=== PATIENT | male | born 1960 | race Caucasian/White ===

== ENCOUNTER → 2016-08-29 | Outpatient (CLI) | payer BC ==
--- NOTE | 2016-08-29 14:21 | US ---
EXAMINATION TYPE: US carotid duplex BILAT DATE OF EXAM: 08/29/2016 2:06 PM COMPARISON: NONE CLINICAL HISTORY: I65.29 Occlusion and stenosis of unspecified carot. EXAM MEASUREMENTS: RIGHT: Peak Systolic Velocity (PSV) cm/sec ----- Right CCA: 70.6 ----- Right ICA: 56.8 ----- Right ECA: 79.8 ICA/CCA ratio: 0.9 RIGHT: End Diastole cm/sec ----- Right CCA: 20.7 ----- Right ICA: 18.4 ----- Right ECA: 17.2 LEFT: Peak Systolic Velocity (PSV) cm/sec ----- Left CCA: 78.4 ----- Left ICA: 60.0 ----- Left ECA: 65.0 ICA/CCA ratio: 0.8 LEFT: End Diastole cm/sec ----- Left CCA: 22.8 ----- Left ICA: 26.8 ----- Left ECA: 16.2 VERTEBRALS (direction of flow): Right Vertebral: Antegrade Left Vertebral: Antegrade IMPRESSION: Minimal atheromatous change without hemodynamically significant stenosis. Criteria for Assigning % of Stenosis / Diameter reduction (Estimation based on the indirect measurements of the internal carotid artery velocities (ICA PSV). 1. Normal (no stenosis)=ICA PSV < 125 cm/s: ratio < 2.0: ICA EDV<40 cm/s. 2. Less than 50% stenosis=ICA PSV < 125 cm/s: ratio < 2.0: ICA EDV<40 cm/s. 3. 50 to 69% stenosis=ICA PSV of 125 to 230 cm/s: ration 2.0 ? 4.0: ICA EDV 40-100 cm/s. 4. Greater than 70% stenosis to near occlusion= ICA PSV > 230 cm/s: ratio > 4.0: ICA EDV > 100 cm/s. 5. Near occlusion= ICA PSV velocities may be low or undetectable: variable ratio and ICA EDV. 6. Total occlusion=unable to detect flow.
== END | disposition home or self-care (01) ==
LOC: RADUSWWP 13:36
PROVIDERS: ATTEND Family Medicine
DX: I65.29 Occlusion and stenosis of unspecified carotid artery (principal)
CPT/HCPCS: 93880

== ENCOUNTER → 2018-08-04 | Outpatient (CLI) | payer BC ==
--- NOTE | 2018-08-05 07:18 | XR ---
EXAMINATION TYPE: XR lumbosacral spine min 4V DATE OF EXAM: 08/04/2018 CLINICAL HISTORY: Low back pain radiating into the groin TECHNIQUE: Frontal, lateral, and oblique images of the lumbar spine are obtained. COMPARISON: None FINDINGS: There are 5 lumbar type vertebral bodies identified. The lumbar spine shows satisfactory alignment without evidence of acute fracture or dislocation. Vertebral body heights are within normal limits. Endplate sclerosis is wing is seen at L4-L5 and L5-S1. Facet arthropathy is present from L3 through S1. Multilevel small anterior ossified structure also seen. There is a slight dextroscoliosis of the lumbar spine. The oblique images demonstrate no pars interarticularis defects. The overlying soft tissue appears unremarkable. Cholecystectomy clips are noted. IMPRESSION: No acute fracture or malalignment in the lumbar spine. Mild to moderate multilevel degen erative disc disease of the lumbar spine and slight dextroscoliosis.
== END | disposition home or self-care (01) ==
LOC: RADXRYALE 16:54
PROVIDERS: ATTEND Family Medicine
DX: M51.36 Other intervertebral disc degeneration, lumbar region (principal); M41.86 Other forms of scoliosis, lumbar region
CPT/HCPCS: 72110

== ENCOUNTER → 2020-05-05 | Outpatient (CLI) | payer BC ==
--- NOTE | 2020-05-05 08:39 | MR ---
EXAMINATION TYPE: MR lumbar spine wo/w con DATE OF EXAM: 05/05/2020 COMPARISON: Lumbar spine x-ray August 04, 2018 HISTORY: Low-back pain into left hip for 2 weeks. Radiculopathy and disc degeneration per order. TECHNIQUE: Multiplanar, multisequence images of the lumbar spine is performed without and with IV contrast, util izing 10 mL intravenous Gadavist FINDINGS: Persistent slight lateral convex scoliotic curvature centered at L2 level. Sagittal images of the lumbar spine show vertebral body heights and alignment to appear satisfactory. Multilevel disc desiccation with mild to moderate disc space narrowing L2-L3 level. [id number]-vi-jtdqadog multilevel ant erior spurring. The conus medullaris is normal in position and signal ending mid L1 level. There is a 7 mm Tarlov cyst S2 level sagittal image 8 The bone marrow signal intensity is within normal limits. No suspicious postcontrast enhancement. Axial images at T12-L1 level show mild facet degenerative changes bilaterally. Axial images at L1-L2 show ijva-uc-[id number] broad disc bulge minimally effacing the anterior thecal s ac. Patent bilateral neural foramina. Axial images at L2-L3 level show moderate broad disc bulge effacing the anterior thecal sac with mild facet degenerative changes and ligamentum flavum hypertrophy. There is mild to moderate left and mil d right-sided neural foraminal narrowing. Axial images at the L3-L4 level show mild to moderate broad disc bulge and mild facet arthropathy jossie aterally. Patent spinal canal and bilateral neural foramina. Axial images at L4-L5 level show moderate broad disc bulge and mild facet degenerative changes and li gamentum flavum hypertrophy. There is effacement of the anterior thecal sac. There is mild bilateral anterior inferior neural foraminal narrowing. Axial images at the L5-S1 level show annular tear. There is mtxn-ch-mttawtfv broad disc bulge with ce ntral disc protrusion component. There is minimal effacement of the anterior thecal sac. There is mil d left-sided neural foraminal narrowing. Right-sided neural foramina is patent. Mild facet arthropath y bilaterally. Paraspinal muscle bulk is preserved. IMPRESSION: Multilevel degenerative changes in the lumbar spine as detailed above. No suspicious enha ncement is appreciated.
== END | disposition home or self-care (01) ==
LOC: RADMRIMAIN 07:22
PROVIDERS: ATTEND Family Medicine
DX: M47.26 Other spondylosis with radiculopathy, lumbar region (principal); M47.27 Other spondylosis with radiculopathy, lumbosacral region; M47.25 Other spondylosis with radiculopathy, thoracolumbar region
CPT/HCPCS: 72158

== ENCOUNTER → 2021-06-01 | Outpatient (CLI) | payer BC ==
--- NOTE | 2021-06-01 11:18 | CT ---
EXAMINATION TYPE: CT sinus wo con DATE OF EXAM: 06/01/2021 COMPARISON: None HISTORY: 60-year-old male J32.9, Chronic Sinusitis. Patient also states nosebleeds and a deviated sep maritza. CT DLP: 680.10 mGycm Automated exposure control for dose reduction was used. TECHNIQUE: Noncontrast axial views of the paranasal sinuses were obtained. Coronal reconstructions pe rformed. FINDINGS: PARANASAL SINUSES: Mild lobulated mucosal thickening along the floor of the right greater than left maxillary sinuses. Mild mucosal thickening anterior left ethmoid air cells. The sphenoid and frontal sinuses are well pneumatized. There is no air-fluid level. Reactive rocky- osteogenesis is not seen. There is no destruction of the osseous covarrubias of the paranasal sinuses. THE NASAL CAVITY: The osteomeatal complexes are patent. There is leftward nasal septal deviation. The imaged brain and orbits are normal in appearance. Mastoid air cells and middle ear cavities are well pneumatized. Reformatted images confirm above findings. IMPRESSION: 1. Mild mucosal thickening bilateral maxillary sinuses and mild within the anterior left ethmoid air cells. 2. Leftward nasal septal deviation.
== END | disposition home or self-care (01) ==
LOC: RADCTMAIN 10:25
PROVIDERS: ATTEND Otolaryngology
DX: J34.2 Deviated nasal septum (principal); J34.89 Other specified disorders of nose and nasal sinuses
CPT/HCPCS: 70486

== ENCOUNTER 2024-04-13 05:37 | Day surgery (SDC) | payer BC, OTHER ==
[2024-04-09 13:09] VITALS: BMI 31.4
[2024-04-13] MEDS ORDERED: LIDOCAINE 1% (10MG/ML) FOR IV START INTRADERMA PRN (06:09)
[2024-04-13 06:38] VITALS: TEMP 98
[2024-04-13] MEDS: ACETAMINOPHEN TAB 500 MG TAB PO PRN (06:43)
[2024-04-13] MEDS: LACTATED RINGERS 1,000 ML IV SCH (06:43)
[2024-04-13] MEDS: IV FLUID CONTINUATION 1,000 ML IV ONE (07:00)
[2024-04-13] MEDS ORDERED: fentaNYL (PF) 50 MCG/ML 2 ML AMP IVP PRN (07:00)
[2024-04-13] MEDS: MIDAZOLAM 2 MG/2 ML VIAL IV PRN (07:01)
[2024-04-13] MEDS: MIDAZOLAM 2 MG/2 ML VIAL IVP ONE (07:01)
[2024-04-13] MEDS: ONDANSETRON 4 MG/2 ML VIAL IVP ONE (07:10)
[2024-04-13] MEDS: HEPARIN SODIUM,PORCINE 5,000 UNIT/ML 1 ML VIAL SQ PRN (07:10)
[2024-04-13] MEDS: DEXAMETHASONE SOD PHOSPHATE 4 MG/ML 1 ML VIAL IV ONE (07:11)
[2024-04-13] MEDS: LIDOCAINE 1%-EPI 1:100,000 20 ML VIAL SQ ONE ×2 (07:22→08:01)
[2024-04-13] MEDS ORDERED: GLYCOPYRROLATE 0.2 MG/ML 2 ML VIAL ONE (07:42)
[2024-04-13] MEDS ORDERED: ROCURONIUM 10 MG/ML (5 ML VIAL) IV ONE (07:42)
[2024-04-13] MEDS ORDERED: fentaNYL (PF) 50 MCG/ML 2 ML AMP ONE (07:42)
[2024-04-13] MEDS ORDERED: NEOSTIGMINE 1 MG/ML 10 ML VIAL ONE (07:42)
[2024-04-13] MEDS ORDERED: KETAMINE HCL IN 0.9 % NACL 50 MG/5 ML SYRINGE ONE (07:42)
[2024-04-13] MEDS ORDERED: DEXAMETHASONE SOD PHOSPHATE 4 MG/ML 1 ML VIAL ONE (07:42)
[2024-04-13] MEDS ORDERED: SUCCINYLCHOLINE CHLORIDE 200 MG/10 ML VIAL IV ONE (07:42)
[2024-04-13] MEDS ORDERED: LIDOCAINE 1% INJ 10MG/ML (20 ML MDV) ONE (07:42)
[2024-04-13] MEDS ORDERED: ROPIVACAINE 5 MG/ML 30 ML VIAL ONE (07:42)
[2024-04-13] MEDS ORDERED: MIDAZOLAM 2 MG/2 ML VIAL ONE (07:42)
[2024-04-13] MEDS ORDERED: KETOROLAC 15 MG/ML 1 ML VIAL ONE (07:42)
[2024-04-13] MEDS ORDERED: PROPOFOL 10 MG/ML 20 ML VIAL IV ONE (07:42)
[2024-04-13] MEDS ORDERED: SODIUM CHLORIDE 0.9% (PF) 10 ML VIAL ONE (07:42)
[2024-04-13 08:56] VITALS: RESP 16
--- NOTE | 2024-04-13 08:57 | P.OP ---
Date of Procedure: 04/13/24 Preoperative Diagnosis: Right inguinal hernia Postoperative Diagnosis: Bilateral inguinal hernia Right cord lipoma Epiploic fat ischemia Procedure(s) Performed: Laparoscopic robotic cyst repair of bilateral inguinal hernias Excision of right cord lipoma Transversus abdominis plane block Anesthesia: JULIETA Surgeon: Samy Peña Estimated Blood Loss (ml): 5 Pathology: other (Right cord lipoma) Condition: stable Disposition: PACU Description of Procedure: The patient's placed on the operating table in the supine position. The patient received general anesthesia. The patient's abdomen was prepped and draped in usual sterile fashion. The skin was anesthetized 1% local Xylocaine at the incision sites. Using an 11 blade a skin incision was made at the umbilicus. The fascia was grasped with a Britt and then the peritoneal cavity was entered with the Veress needle. Position of the Veress needle was confirmed with a positive drop test. After adequate insufflation a 5 mm trocar was placed into the peritoneal cavity. The Laparoscope was placed the peritoneal cavity. And a robotic 8 mm trocar was placed in the right lateral position and then another 8 mm robotic trochars placed in the left lateral position. The original 5 mm trocar was exchanged for a 8 mm trocar. The patient was placed in reverse Trendelenburg and then the patient was docked to the robot. The patient was noted to have some epiploic fat on the left colon which was adherent to the abdominal wall. This was dissected off the abdominal wall using blunt dissection. It was thought that the fat may have been mildly ischemic A four-quadrant transversus abdominis plane block was then performed 1% local Xylocaine. Next the peritoneum over top of the right inguinal hernia was incised and then using blunt and sharp dissection and electrocautery the hernia sac was dissected free from the floor of the inguinal canal. The cord lipoma was dissected free sent pathology. The hernia sac was completely reduced into the peritoneal cavity. And then using the [place] [employer] judge mesh the hernia was repaired. The peritoneum was then sutured with 20V lock suture. Next the peritoneum over top of the left inguinal hernia was incised and then using blunt and sharp dissection and electrocautery the hernia sac was dissected free from the floor of the inguinal canal. The hernia sac was completely reduced into the peritoneal cavity. And then using the [place] [employer] judge mesh the hernia was repaired. The peritoneum was then sutured with 20V lock suture. The patient was then undocked the robot. The needle was withdrawn from the peritoneal cavity. The umbilical trocar site was closed with 0 Ethibond suture. The skin was closed interrupted 3-0 Monocryl suture. Dermabond dressing was applied. Patient was sent to recovery in stable condition.
[2024-04-13] MEDS: HYDROmorphone 0.5 MG/0.5 ML SYRINGE IVP PRN (09:15)
[2024-04-13 10:42] VITALS: PULSE 82
[2024-04-13 11:49] VITALS: BP 145/78
--- NOTE | 2024-04-15 17:59 | P.ANPRN ---
Procedure Note - Anesthesia - Nerve Block Performed Bilateral Erector Spinae Single Time Out Performed: Yes Date of Procedure: 04/13/24 Location of Patient: PreOp Indication: Acute Post-Operative Pain, Requested by Surgeon Sedation Type: Sedate with meaningful contact maintained Preparation: Sterile Prep Position: Prone Needle Types: Pajunk Needle Gauge: 21 Ultrasound used to visualize needle placement: Yes Ultrasound used to observe medication spread: Yes Blood Aspirated: No Pain Paresthesia on Injection Noted: No Resistance on Injection: Normal Image Stored and Saved: Yes Events: Uneventful and Well Tolerated (Ropivacaine 0.5% 15 cc plus normal saline 10 cc plus dexamethasone 4 mg given bilaterally at L1)
== END 2024-04-13 11:35 | disposition home or self-care (01) ==
LOC: OR 05:37
PROVIDERS: ATTEND Surgery
DX: K40.20 Bilateral inguinal hernia, without obstruction or gangrene, not specified as recurrent (principal); D17.6 Benign lipomatous neoplasm of spermatic cord; G89.18 Other acute postprocedural pain; I10 Essential (primary) hypertension; G47.33 Obstructive sleep apnea (adult) (pediatric); Z88.5 Allergy status to narcotic agent; Z79.899 Other long term (current) drug therapy; Z90.49 Acquired absence of other specified parts of digestive tract
CPT/HCPCS: 49650; S2900; 64999; 88304

== ENCOUNTER → 2024-11-01 | Outpatient (CLI) | payer BC ==
--- NOTE | 2024-11-01 14:20 | US ---
EXAMINATION TYPE: US carotid duplex BILAT DATE OF EXAM: 11/01/2024 COMPARISON: 08/29/16 CLINICAL INDICATION: Male, 63 years old with history of R42 DIZZINESS AND GIDDINESS; dizziness Additional History: R42* Dizziness TECHNIQUE: Grayscale, color Doppler and spectral Doppler evaluation of the bilateral carotid systems and vertebral arteries. Indirect Doppler criteria was utilized. FINDINGS: EXAM MEASUREMENTS: RIGHT: Peak Systolic Velocity (PSV) cm/sec ----- Right CCA: 67.7 ----- Right ICA: 74.2 ----- Right ECA: 110.4 ICA/CCA ratio: 1.1 RIGHT: End Diastole cm/sec ----- Right CCA: 18.2 ----- Right ICA: 25.1 ----- Right ECA: 21.1 LEFT: Peak Systolic Velocity (PSV) cm/sec ----- Left CCA: 62.5 ----- Left ICA: 82.0 ----- Left ECA: 68.6 ICA/CCA ratio: 1.3 LEFT: End Diastole cm/sec ----- Left CCA: 18.8 ----- Left ICA: 28.1 ----- Left ECA: 11.9 VERTEBRALS (direction of flow): Right Vertebral: Antegrade Left Vertebral: Antegrade Rhythm: Normal BOARD SETTER NOTES: No elevated velocities seen Color Doppler imaging shows patency with blood flow throughout the carotid artery. Spectral waveforms are within normal limits. IMPRESSION: Right: Less than 50% stenosis of the carotid bifurcation. Left: Less than 50% stenosis of the carotid bifurcation. Criteria for Assigning % of Stenosis / Diameter reduction (Estimation based on the indirect measurements of the internal carotid artery velocities (ICA PSV). 1. Normal (no stenosis)=ICA PSV < 180 cm/s: ratio < 2.0: ICA EDV<40 cm/s. 2. Less than 50% stenosis=ICA PSV < 180 cm/s: ratio < 2.0: ICA EDV<40 cm/s. 3. 50 to 69% stenosis=ICA PSV of 180 to 230 cm/s: ration 2.0 ? 4.0: ICA EDV 40-100 cm/s. PSV 125-180 cm/sec and ICA/CCA PSV Ratio ? 2.0 is also consistent with 50-69% stenosis 4. Greater than 70% stenosis to near occlusion= ICA PSV > 230 cm/s: ratio > 4.0: ICA EDV > 100 cm/s. 5. Near occlusion= ICA PSV velocities may be low or undetectable: variable ratio and ICA EDV. 6. Total occlusion=unable to detect flow. [facility], , 11/01/2024 2:18 PM
== END | disposition home or self-care (01) ==
LOC: RADUSWWP 13:41
PROVIDERS: ATTEND Family Medicine
DX: I65.23 Occlusion and stenosis of bilateral carotid arteries (principal); F17.218 Nicotine dependence, cigarettes, with other nicotine-induced disorders; E78.2 Mixed hyperlipidemia
CPT/HCPCS: 93880